=== PATIENT | female | born 1975 | race Two or more races ===

== ENCOUNTER 2018-12-30 16:32 | Emergency (ER) | payer MEDICAID, OTHER ==
[~2018-12-30] VITALS: Ht 157.5 cm; Wt 63.0 kg
[2018-12-30 17:13] LABS: Basophils # (auto) 0.1 uL; Eosinophils # (auto) 0.1 uL; Hemoglobin 7.5 g/dL (12.2-16.2); Monocytes # (auto) 0.6 uL; White Blood Cell 5.7 10^3/uL (4.4-10.8)
[2018-12-30 17:28] LABS: Calcium 8.7 mg/dL (8.5-10.1); Potassium 3.8 mmol/L (3.5-5.1)
[2018-12-30] MEDS ORDERED: SODIUM CHLORIDE 0.9% 1,000 ML IV ONE (17:30)
[2018-12-30 17:31] LABS: BUN/Creatinine Ratio 22.7; Bilirubin, Total 0.3 mg/dL (0.2-1.0); Total Protein 8.7 g/dL (6.4-8.2)
[2018-12-30 17:38] LABS: Neutrophils % (auto) 57.3 % (37.0-80.0)
[2018-12-30 17:39] LABS: Basophils % (auto) 2.5 % (0.0-2.0); Eosinophils % (auto) 1.4 % (0.0-7.0); Hematocrit 26.7 % (36.0-46.0); Lymphocytes # (auto) 1.6 uL; Lymphocytes % (auto) 27.8 % (10.0-50.0); Neutrophils # (auto) 3.3 uL; Nucleated Red Blood Cells % 0.1 %; Red Blood Cells 4.44 10^6/uL (4.0-5.20)
[2018-12-30 17:40] LABS: Mean Corpuscular Hemoglobin 16.9 pg (28.0-32.0); Mean Corpuscular Hgb Conc. 28.1 g/dL (32.0-36.0); Mean Corpuscular Volume 60.1 fL (80.0-100.0); Platelet Count (auto) 494 10^3/uL (140-450); Red Cell Distribution Width 20.6 % (11.8-14.3)
[2018-12-30 19:06] LABS: Urine Bacteria FEW /hpf (None Seen); Urine Blood Negative /uL (Negative); Urine Specific Gravity 1.005 (1.001-1.035); Urine WBC <1 /hpf (0 - 5)
[2018-12-30 19:28] LABS: INR 0.92 (0.9-1.15); Partial Thromboplastin Time 24.7 sec (23.78-33.04); Prothrombin Time 9.9 sec (9.27-12.13)
[2018-12-30] MEDS ORDERED: ACETAMINOPHEN 325 MG TAB PO PRN (21:00)
[2018-12-30] MEDS ORDERED: TEMAZEPAM 15 MG CAP PO PRN (21:00)
[2018-12-30] MEDS ORDERED: ONDANSETRON HCL 4 MG/2 ML VIAL IV PRN (21:00)
[2018-12-30] MEDS ORDERED: FAMOTIDINE 20 MG TAB PO SCH (22:00)
[2018-12-30 22:25] VITALS: BP 101/67
[2018-12-30 22:45] VITALS: BP 89/52
[2018-12-31 00:43] VITALS: BP 86/58
[2018-12-31] MEDS ORDERED: SODIUM CHLORIDE 0.9% 500 ML IV ONE (02:00)
[2018-12-31 04:00] LABS: Hemoglobin 7.5 g/dL (12.2-16.2)
[2018-12-31 04:02] LABS: Hematocrit 25.6 % (36.0-46.0)
[2018-12-31 05:10] VITALS: BP 96/52
== END 2018-12-31 05:05 | disposition home or self-care (01) ==
LOC: ER 16:32
DX: R42 Dizziness and giddiness (principal); D64.9 Anemia, unspecified
CPT/HCPCS: 36415; 36430; 80053; 81001; 81025; 83880; 84484; 85014; 85018; 85025; 85610; 85730; 86850; 86900; 86901; 86920; 93005; 96360; 96361; 99284; J7030; P9016